=== PATIENT | female | born 1990 | race Caucasian/White ===

== ENCOUNTER 2018-02-04 12:16 | Emergency (ER) | payer OTHER ==
[2018-02-04] MEDS ORDERED: Fentanyl 100 MCG/2 ML VIAL ONE (12:48)
[2018-02-04] MEDS ORDERED: Ondansetron ODT 4 MG TAB ONE (12:48)
--- NOTE | 2018-02-04 13:34 | RAD ---
TWO VIEWS RIGHT HUMERUS: COMPARISON: None. HISTORY: Climbing in the attic and fell through the ceiling with right arm pain. FINDINGS: Two views of the right humerus show a fracture of the mid portion of the humerus. This is moderately displaced. Surrounding soft tissue swelling is seen. No dislocation is present. IMPRESSION: Mid right humerus fracture. POS: [facility]
[2018-02-04] MEDS ORDERED: HYDROcodone/Acetaminophen 10/325 mg Tablet ONE (14:32)
[2018-02-04] MEDS ORDERED: Ketorolac Tromethamine 30 MG/ML VIAL ONE (14:37)
== END 2018-02-04 15:17 | disposition home or self-care (01) ==
LOC: ERS 12:16
DX: S42.301A Unspecified fracture of shaft of humerus, right arm, initial encounter for closed fracture (principal); F32.9 Major depressive disorder, single episode, unspecified; E28.2 Polycystic ovarian syndrome; Z79.899 Other long term (current) drug therapy; W17.89XA Other fall from one level to another, initial encounter
CPT/HCPCS: 29105; 96374; 96375; J1885; J2270; J3010; Q0162

== ENCOUNTER 2018-02-05 12:33 | Outpatient (CLI) | payer OTHER ==
--- NOTE | 2018-02-05 14:10 | CT ---
CT OF THE ABDOMEN AND PELVIS WITHOUT CONTRAST: INDICATION: Fall through attic yesterday with low back pain. FINDINGS: There is a small subpleural cystic abnormality seen involving the right lower lobe measuring 1.4 cm o n image 13 of series 2. The left lung base is clear. The unopacified solid organs of the abdomen and pelvis appear within normal limits. A small amount of physiologic fluid is seen with the cul-de-sac of Jerry. Unopacified large and small bowel appea r within normal limits. There is a mild amount of retained stool within the colon. There is a alphonso l appendix in the right lower quadrant of the abdomen. No acute fracture or subluxation is evident. There is a small suspected resolving contusion involving the subcutaneous tissues overlying the righ t hip. IMPRESSION: 1. No acute fracture or subluxation. 2. Small subpleural cystic abnormality involving the posteromedial segment of the right lower lobe m easuring 1.4 cm may reflect sequelae of prior trauma or infection. 3. Resolving contusion of the soft tissues of the right hip. POS: [facility]
== END 2018-02-05 12:34 | disposition home or self-care (01) ==
LOC: CT 12:33
PROVIDERS: ATTEND Surgery
DX: S42.461D Displaced fracture of medial condyle of right humerus, subsequent encounter for fracture with routine healing (principal); J98.4 Other disorders of lung
CPT/HCPCS: 74176

== ENCOUNTER 2018-02-07 09:49 | Outpatient (CLI) | payer OTHER ==
[2018-02-07 10:43] LABS: BHCG - Serum Negative (NEGATIVE); Pregs Control Background? CLEAR/WHITE (CLR/WHITE); Pregs Control Bar Appear? YES (CONTROL BAR)
[2018-02-07 10:48] LABS: Hemoglobin 12.6 g/dL (12.0-16.0); Mean Corpuscular HGB CONC 34.4 g/dL (32.0-36.0); Mean Corpuscular Hemoglobin 31.4 pg (27.0-31.0); Mean Corpuscular Volume 91.1 fL (78.0-98.0); Mean Platelet Volume 6.9 fL (7.4-10.4); Platelet Count 237 thou/uL (130-400); RBC Distribution Width 10.9 % (11.5-14.5); Red Blood Cell (RBC) Count 4.01 mill/uL (4.20-5.40); White Blood Cell (WBC) Count 6.7 thou/uL (4.8-10.8)
== END 2018-02-07 09:50 | disposition home or self-care (01) ==
LOC: LABBT 09:49
PROVIDERS: ATTEND Orthopaedic Surgery
DX: Z01.812 Encounter for preprocedural laboratory examination (principal); S42.301A Unspecified fracture of shaft of humerus, right arm, initial encounter for closed fracture
CPT/HCPCS: 84703; 85027

== ENCOUNTER 2018-02-08 09:09 | Day surgery (SDC) | payer OTHER ==
[2018-02-07 10:23] VITALS: BMI 27.1
[2018-02-08] MEDS ORDERED: Midazolam HCl 2 mg/2 ml Vial ONE (10:42)
[2018-02-08] MEDS ORDERED: Fentanyl 100 MCG/2 ML VIAL ONE ×3 (10:42→14:48)
[2018-02-08] MEDS ORDERED: Levofloxacin 500 mg/D5W 100 ml Premix Bag ONE (10:57)
[2018-02-08] MEDS ORDERED: Clindamycin/D5W 900 mg/50 ml Premix Bag ONE (10:57)
[2018-02-08] MEDS ORDERED: HYDROcodone/Acetaminophen 5/325 mg Tablet PO PRN ×2 (11:25)
[2018-02-08] MEDS ORDERED: Promethazine HCl 25 MG/ML VIAL IM PRN (11:25)
[2018-02-08] MEDS ORDERED: Zolpidem Tartrate 5 MG TAB PO PRN (11:25)
[2018-02-08] MEDS ORDERED: Ondansetron HCl/PF 4 MG/2 ML Vial IVP PRN (11:25)
[2018-02-08] MEDS ORDERED: Ropivacaine HCl/PF 1,100 MG in Sodium Chloride 0.9% 440 ML NERVE BLCK SCH (11:25)
[2018-02-08] MEDS ORDERED: traMADol HCl 50 MG TAB PO PRN ×2 (11:25)
[2018-02-08] MEDS ORDERED: Fentanyl 100 MCG/2 ML VIAL IV PRN (11:27)
[2018-02-08] MEDS ORDERED: Ropivacaine 0.5% HCl/PF (150 MG/30 ML VIAL) ONE (14:52)
[2018-02-08] MEDS ORDERED: Ropivacaine 0.2% HCl/PF (40 MG/20 ML VIAL) ONE (14:52)
--- NOTE | 2018-02-08 14:54 | RAD ---
TWO VIEWS OF THE RIGHT HUMERUS: COMPARISON: 02/04/18. HISTORY: Right humerus fracture status post ORIF. FINDINGS/IMPRESSION: Two limited intraoperative fluoroscopic views of the right humerus were submitted for interpretation. The patient is status post plate and screw fixation of the mid right humeral fracture. No perihard oliveros lucency or fracture are seen. POS: [facility]
[2018-02-08] MEDS ORDERED: Lidocaine 1% PF 5 ML VIAL ONE (15:40)
[2018-02-08] MEDS ORDERED: Ondansetron HCl/PF 4 MG/2 ML Vial ONE (15:40)
[2018-02-08] MEDS ORDERED: PROPOFOL 200 MG/20 ML VIAL ONE (15:40)
[2018-02-08] MEDS ORDERED: PHENYLEPHRINE-NS 100 MCG/ML 10 ML SYRINGE ONE (15:40)
[2018-02-08] MEDS ORDERED: Promethazine HCl 25 MG/ML VIAL ONE (15:46)
--- NOTE | 2018-02-09 01:16 | OP ---
PREOPERATIVE DIAGNOSIS: Right humeral shaft fracture. POSTOPERATIVE DIAGNOSIS: Right humeral shaft fracture. PROCEDURES PERFORMED: 1. Open reduction internal fixation of right humeral shaft fracture. 2. Application of posterior long-arm splint. STAFF: Kushal Mckeon MD ANESTHESIOLOGIST: Douglas Thomas DO ANESTHESIA: The patient received an LMA with block per Anesthesia. ESTIMATED BLOOD LOSS: 250 mL. TOURNIQUET TIME: None. IMPLANTS: Synthes 10-hole LCP plate with eight 4.5 compression screws. One K-wire was in and out. ANTIBIOTICS: Levaquin 500, clindamycin 900. COMPLICATIONS: None. HISTORY OF PRESENT ILLNESS: Ms. King is a pleasant 27-year-old female who presents after a fall fro m a ceiling. She fell on Monday night breaking her right humerus. I discussed with the patient the risks and benefits of operative and nonoperative management of right humeral shaft fracture to includ e pain, scar, bleeding, infection, damage to vital structures, nonunion, malunion, failure of procedu re, continued pain despite surgical revision, decreased range of motion or strength, loss of life or limb. The patient understood the risks and benefits of procedure, and she elected to proceed. DESCRIPTION OF PROCEDURE: Time-out was performed designating the patient's right upper extremity as the operative site based on sight, consents, and markings. After completion of time-out, the patient 's right upper extremity was prepped and draped in a sterile fashion. We made an anterior incision j ust on the lateral aspect of biceps following the deltopectoral nerve proximally, came down onto the biceps, found the cephalic vein, dissected on the lateral aspect of the biceps coming down around the fascia, and opening up on top of the brachialis exposing the humerus more proximally coming undernea th the deltoid with the cephalic vein laterally. I exposed the bone proximally with cautery. I spli t the brachialis down in the middle of the bone using blunt dissection and some cautery. I used a Co bb to expose the humeral shaft, proximal and distal segments. I exposed the bone with a Shanks, Harmon an d a Montgomery elevator, ensuring posteriorly and anteriorly I had control of the distal fragment. It was an oblique, sharp edged, almost transverse fracture pattern line. There were two small pieces that were missing, which hurt with the reduction of the fracture fragment. I first started an old complex ion place, but I did not like the fit and moved to the LCP plate. After I finally got my reduction, I had difficulty placing my plate on the bone. I then elected to reduce the fracture, placed a K-wir e from lateral to medial, hold it into position. I then placed my plate on the bone, placed 2 screws proximally. I ensured on AP and lateral radiographs that it was on the bone. I placed a distal scr ew and decompressed after removing the K-wire to compress the bone together. I placed a second screw to further compress the bone together. It looked at the radiographs and felt I had a good overall a xial compression. I liked the position of the humerus. The plate was still on the bone throughout. I then placed sequentially 1 more distal screw. I placed 2 screws distally, 2 screws proximally. I placed 2 more proximally and 2 more distally tracking soft tissues drilling bicortically and placing 4.5 screws. I placed a total of 8 screws bicortically. I looked on AP and lateral radiographs. I liked the alignment, good overall position of the plate and screws, and the compression of the bone. I then washed. I closed the fascial plane that had been opened just above the biceps. I closed the subcutaneous tissues with Vicryl and closed the skin with vikram. Soft tissue dressing was applied , followed by a long posterior splint with an Davis wrap. The patient will be sent home with a block in place. He will be sent home with tramadol and hydrocod one. The patient will remove her splint in 5-7 days, at which time, she may begin elbow, wrist, and hand motion. She will remain in the sling until I see her back in 10-14 days. We will take her stap les out at that time and progress her motion .
== END 2018-02-08 17:08 | disposition home or self-care (01) ==
LOC: SDC 09:09
PROVIDERS: ATTEND Orthopaedic Surgery
PROC: 0PSF04Z Reposition Right Humeral Shaft with Internal Fixation Device, Open Approach (ICD-10-PCS; principal; 2018-02-08)
DX: S42.301A Unspecified fracture of shaft of humerus, right arm, initial encounter for closed fracture (principal); F32.9 Major depressive disorder, single episode, unspecified; Z79.84 Long term (current) use of oral hypoglycemic drugs; Z79.899 Other long term (current) drug therapy; Z88.0 Allergy status to penicillin; Z88.1 Allergy status to other antibiotic agents; W17.89XA Other fall from one level to another, initial encounter
CPT/HCPCS: 76001; 96374; C1713; J1956; J2001; J2250; J2405; J2550; J2704; J2795; J3010; J3490; J7050

== ENCOUNTER 2018-12-13 16:21 | Day surgery (SDC) | payer OTHER ==
[2018-12-13 17:38] VITALS: BMI 37.3
--- NOTE | 2018-12-14 01:56 | SS ---
DATE OF PROCEDURE: 12/13/2018 REGULAR PHYSICIAN: Keren Martínez MD EVALUATING PHYSICIAN: Scotty Bowens MD CHIEF COMPLAINT: Elevated blood pressures in clinic. HISTORY OF PRESENT ILLNESS: Ms. King is a 27-year-old white G1, P0 with an estimated date of confinement of 12/16/2018, who presents after having had an elevated blood pressures in clinic. She states blood pressures there are 145/90 and 148/88. She did have a dipstick urinalysis there that showed no protein. She has had an intermittent dull headache consistent with sinus congestion, but she denies visual changes or right upper quadrant pain. Her care has been with Dr. Martínez without complications. PAST MEDICAL HISTORY: Migraine headaches. PAST SURGICAL HISTORY: Includes open reduction of a right arm fracture as well as a tonsillectomy and adenoidectomy. CURRENT MEDICATIONS: 1. vitamins. 2. Iron. ALLERGIES: 1. PENICILLIN. 2. CECLOR. SOCIAL HISTORY: Denies tobacco, alcohol, or drug use. FAMILY HISTORY: Unremarkable. REVIEW OF SYSTEMS: Denies nausea, vomiting, fever, chills, ruptured membranes, or vaginal bleeding. PHYSICAL EXAMINATION: VITAL SIGNS: Serial blood pressure show 123/72, 137/88, 132/83, 124/86, and finally 126/77. GENERAL: She is pleasant and in no acute distress. ABDOMEN: Soft, nontender, and gravid. PELVIC: Deferred. heart rate tracing is very reassuring with spontaneous accelerations and no decelerations. No significant uterine contractions were seen. ASSESSMENT: 1. 39 and 1/2 week intrauterine . 2. No evidence of elevated blood pressures at this time. PLAN: The patient will be dismissed to home. I did discuss the patient with Dr. Martínez and no labs will be drawn at this time. The patient voiced understanding of her instructions and she was given PIH precautions before she left. Job ID: [id number]
== END 2018-12-13 18:45 | disposition home or self-care (01) ==
LOC: L&D/OP 16:21
PROVIDERS: ATTEND Student in an Organized Health Care Education/Training Program
DX: O99.89 Other specified diseases and conditions complicating pregnancy, childbirth and the puerperium (principal); R03.0 Elevated blood-pressure reading, without diagnosis of hypertension; O99.353 Diseases of the nervous system complicating pregnancy, third trimester; G43.909 Migraine, unspecified, not intractable, without status migrainosus; Z3A.39 39 weeks gestation of pregnancy; Z79.899 Other long term (current) drug therapy; Z88.0 Allergy status to penicillin; Z88.1 Allergy status to other antibiotic agents
CPT/HCPCS: 99282

== ENCOUNTER 2018-12-16 07:52 | Inpatient (IN) | payer BC, OTHER ==
[2018-12-17] MEDS ORDERED: Bupivacaine/Epinephrine 0.25% 30 ML VIAL ONE ×2 (09:21→15:00)
[2018-12-17] MEDS ORDERED: Ibuprofen 800 MG TAB PO PRN (23:03)
[2018-12-17] MEDS ORDERED: HYDROcodone/Acetaminophen 5/325 mg Tablet PO PRN (23:03)
[2018-12-17] MEDS ORDERED: Methylergonovine 0.2 MG/ML VIAL IM PRN (23:03)
[2018-12-17] MEDS ORDERED: Butorphanol Tartrate 1 MG/ML VIAL SLOW IVP PRN (23:03)
[2018-12-17] MEDS ORDERED: Promethazine HCl 25 MG/ML VIAL IM PRN (23:03)
[2018-12-17] MEDS ORDERED: NS / Oxytocin 40 units/1000ml 1,000 ML IV PRN (23:03)
[2018-12-17] MEDS ORDERED: Zolpidem Tartrate 5 MG TAB PO PRN (23:03)
[2018-12-17] MEDS ORDERED: Lidocaine 1% (PF) 30 ML VIAL SC PRN (23:03)
[2018-12-17] MEDS ORDERED: Misoprostol 200 MCG TAB PR PRN (23:03)
[2018-12-17] MEDS ORDERED: Carboprost 250 MCG/ML AMP IM PRN (23:03)
[2018-12-17] MEDS ORDERED: NS w/ Oxytocin 10 units 500 ML IV SCH (23:03)
[2018-12-17] MEDS ORDERED: Acetaminophen 500 MG TAB PO PRN (23:03)
[2018-12-17] MEDS ORDERED: Ondansetron PF 4 MG/2 ML Vial IVP PRN (23:03)
[2018-12-17] MEDS ORDERED: Diphenoxylate HCl/Atropine Tablet PO PRN (23:03)
[2018-12-17 23:29] VITALS: BMI 37.5
[2018-12-17] MEDS ORDERED: Misoprostol 100 MCG TAB VAG SCH (23:30)
[2018-12-17 23:35] LABS: Hemoglobin 12.8 g/dL (12.0-16.0); Mean Corpuscular HGB CONC 34.5 g/dL (32.0-36.0); Mean Corpuscular Hemoglobin 31.6 pg (27.0-31.0); Mean Corpuscular Volume 91.6 fL (78.0-98.0); Mean Platelet Volume 7.5 fL (7.4-10.4); Platelet Count 258 thou/uL (130-400); Red Blood Cell (RBC) Count 4.04 mill/uL (4.20-5.40); White Blood Cell (WBC) Count 13.2 thou/uL (4.8-10.8)
[2018-12-18 00:13] LABS: HBSAg Index 0.25 S/CO (0-0.99); Hep B Surf Ag Non-Reactive S/CO (NonReactive); Syphilis Antibody Nonreactive (Nonreactive); Syphilis Antibody Index 0.05 S/CO (<1.00 Non-Reactive)
[2018-12-18] MEDS: Lactated Ringer's 1,000 ML IV SCH ×2 (00:23→02:51)
[2018-12-18] MEDS ORDERED: Fentanyl 4 mcg/Bup 0.1% Cadd 100 ML ONE ×2 (01:15→06:32)
[2018-12-18] MEDS ORDERED: Lidocaine 1.5%/Epinephrine 1:200,000 5 ML AMPUL IJ ONE (01:16)
--- NOTE | 2018-12-18 07:58 | PDOC.LDHP ---
Labor and Delivery H&P Chief complaint: scheduled induction HPI: 27yo at 40w2d by LMP here for elective IOL. Comfortable with epidural. Current gestational age (weeks): 40 Due date: 12/16/18 Dating criteria: last menstrual period Grav: 1 Para: 0 Current complications: none Abnormal US findings: No Past Medical History: denies Current medications: pre-lakshmi vitamins Previous surgical history: other (tonsils, right arm surgery) Allergies/Adverse Reactions: Allergies Allergy/AdvReac Type Severity Reaction Status Date / Time cefaclor [From Ceclor] Allergy Rash Verified 12/17/18 23:23 Penicillins Allergy Rash Verified 12/17/18 23:23 Social history: none - Physical Exam Vital signs reviewed and normal: yes General: NAD Heart: RRR Lungs: CTAB Abdomen: gravid Extremeties: no edema FHT: category 1, early decelerations [place] contractions every: q2-3min - Vaginal Exam cm dilated: 7 Effacement: 75% Station: 0 - OB Labs Blood type: A RH: positive Antibody Screen: negative HIV: negative RPR: negative HEPSAg: negative 1 hour GCT: negative GBS: negative Urine drug screen: negative Rubella: non-immune - Assessment L&D Assessment: elective induction at term - Plan Plan: labor augmentation if indicated, informed consent obtained, anesthesia consult for pain management -: MMR prior to DC
--- NOTE | 2018-12-18 12:58 | PDOC.OPDEL ---
OB Operative/Delivery Note Delivery Dr/Surgeon: Jessica Assist: n/a Pre-Delivery Diagnosis: elective induction Procedure/Post Delivery Dx: spontaneous vaginal delivery Weeks gestation: 40 Anesthesia: epidural - Findings A Sex: female - 1 min: 8 - 5 min: 9 - Additional Findings/Plan Placenta delivered: spontaneous Repaired Obstetrical Laceration: periurethral (right, repaired with 3-0 vicryl in running fashion for hemostasis) Estimated blood loss: 325cc Post delivery plan: routine recovery
[2018-12-18] MEDS ORDERED: Bisacodyl 10 MG SUPP PR PRN (13:23)
[2018-12-18] MEDS ORDERED: NS / Oxytocin 40 units/1000ml 1,000 ML IV SCH (13:23)
[2018-12-18] MEDS ORDERED: Lanolin Ointment 7 GM TUBE TOP PRN (13:23)
[2018-12-18] MEDS ORDERED: Ondansetron PF 4 MG/2 ML Vial IVP PRN (13:23)
[2018-12-18] MEDS ORDERED: Benzocaine-Menthol 82.5 ML CAN TOP PRN (13:23)
[2018-12-18] MEDS ORDERED: HYDROcodone/Acetaminophen 5/325 mg Tablet PO PRN ×2 (13:23)
[2018-12-18] MEDS ORDERED: Adacel (T-DAP) 0.5 ML SYRINGE IM ONE (13:23)
[2018-12-18] MEDS ORDERED: diphenhydrAMINE 25 MG CAP PO PRN (13:23)
[2018-12-18] MEDS ORDERED: Measles/Mumps/Rubella 10 MCG/0.5 ML VIAL SC ONE (13:23)
[2018-12-18] MEDS ORDERED: Preparation H Ointment 28 GM TUBE PR PRN (13:23)
[2018-12-18] MEDS ORDERED: Milk Of Magnesia 30 ML UDCUP PO PRN (13:23)
[2018-12-18] MEDS: Ibuprofen 800 MG TAB PO SCH ×2 (16:09→23:10)
[2018-12-18] MEDS: Ferrous Sulfate 325 MG TAB PO SCH (18:22)
[2018-12-18] MEDS: Docusate Calcium (SURFAK) 240 MG CAP PO SCH (23:11)
[2018-12-19] MEDS: Ibuprofen 800 MG TAB PO SCH ×3 (06:23→21:17)
[2018-12-19] MEDS: Docusate Calcium (SURFAK) 240 MG CAP PO SCH ×2 (08:38→21:17)
[2018-12-19] MEDS: Prenatal Vitamin 1 TAB PO SCH (08:38)
--- NOTE | 2018-12-19 08:54 | PDOC.PP ---
Post Progress Note Post Day #: 1 Subjective: Pt evaluated PPD1. Pt is doing well. Minimal lochia. She has been up and showered. She is urinating without difficulty. She is breast feeding with plan to see trousseau consultant this afternoon. She is eating and drinking normally. No leg pain or swelling. PO intake tolerated: yes Flatus: yes Ambulation: yes Vital Signs (12 hours) Temp Pulse Resp BP 12/19/18 05:00 97.9 F 68 18 124/72 12/18/18 23:15 97.6 F 73 18 117/73 Weight Weight 277 lb - Physical Examination General: NAD Respiratory: non-labored breathing Abdominal: + bowel sounds, lochia, no distention, appropriately TTP Extremities: negative homans (B) Skin: no rash Neurological: no gross focal deficits Psychiatric: A&Ox3, normal affect Result Diagrams: 12/17/18 23:26 Additional Labs: Post Labs Blood Type A POSITIVE 12/17/18 23:26 Hep Bs Antigen Non-Reactive S/CO (NonReactive) 12/17/18 23:26 (1) Vaginal delivery Code(s): O80 - ENCOUNTER FOR FULL-TERM UNCOMPLICATED DELIVERY Status: Acute - Assessment/Plan Pt doing well PPD1. Pain controlled with minimal lochia. Baby is breast feeding with plan for consultation today. We will plan to d/c tomorrow when baby is discharged.
[2018-12-19] MEDS: Ferrous Sulfate 325 MG TAB PO SCH ×2 (13:30→18:29)
[2018-12-20] MEDS ORDERED: Acetaminophen 325 MG TAB PO PRN (00:21)
[2018-12-20] MEDS: Ibuprofen 800 MG TAB PO SCH (06:21)
[2018-12-20] MEDS: Ferrous Sulfate 325 MG TAB PO SCH (07:32)
[2018-12-20] MEDS: Prenatal Vitamin 1 TAB PO SCH (08:05)
[2018-12-20] MEDS: Docusate Calcium (SURFAK) 240 MG CAP PO SCH (08:05)
[2018-12-20 08:28] VITALS: BP 120/77; TEMP 97.6
--- NOTE | 2018-12-20 09:31 | PDOC.PP ---
Post Progress Note Post Day #: 2 Subjective: doing well, no concerns, ready for DC today PO intake tolerated: yes Flatus: yes Ambulation: yes Vital Signs (12 hours) Temp Pulse Resp BP Pulse Ox 12/20/18 08:27 97.6 F 81 20 120/77 96 12/20/18 00:00 97.9 F 78 18 118/75 Weight Weight 277 lb - Physical Examination General: NAD Respiratory: non-labored breathing Neurological: no gross focal deficits Psychiatric: A&Ox3, normal affect Result Diagrams: 12/17/18 23:26 Additional Labs: Post Labs Blood Type A POSITIVE 12/17/18 23:26 Hep Bs Antigen Non-Reactive S/CO (NonReactive) 12/17/18 23:26 - Assessment/Plan PPD2 doing well, no concerns, plan for DC.
== END 2018-12-20 12:20 | disposition home or self-care (01) | DRG 807 ==
LOC: EDSTATUS 10:47 → L&D 12-17 23:00 → 3SW 12-18 14:02
PROVIDERS: ADMIT Student in an Organized Health Care Education/Training Program; ATTEND Student in an Organized Health Care Education/Training Program
PROC: 10E0XZZ Delivery of Products of Conception, External Approach (ICD-10-PCS; principal; 2018-12-18)
PROC: 0HQ9XZZ Repair Perineum Skin, External Approach (ICD-10-PCS; 2018-12-18)
DX: O48.0 Post-term pregnancy (principal); Z37.0 Single live birth; Z3A.40 40 weeks gestation of pregnancy; O71.82 Other specified trauma to perineum and vulva
CPT/HCPCS: 36415; 51702; 85027; 86780; 86850; 86900; 86901; 87340; 90707; 90715; J2405; J2590; J3490